=== PATIENT | female | born 1995 | race Two or more races ===

== ENCOUNTER 2017-05-06 22:19 | Emergency (ER) | payer SELFPAY ==
[~2017-05-06] VITALS: Ht 162.6 cm; Wt 6.0 kg
[2017-05-06] MEDS ORDERED: IBUPROFEN 800MG TABLET PO ONE (23:30)
[2017-05-07 00:27] VITALS: BP 115/69
== END 2017-05-06 23:48 | disposition home or self-care (01) ==
LOC: ER 22:19
DX: L03.115 Cellulitis of right lower limb (principal)
CPT/HCPCS: 99283

== ENCOUNTER 2018-03-04 07:17 | Observation (INO) | payer MEDICAID ==
[~2018-03-04] VITALS: Ht 165.1 cm; Wt 76.7 kg
[2018-03-04] MEDS ORDERED: PREN1TAB78 MT (07:43)
== END 2018-03-04 08:15 | disposition home or self-care (01) ==
LOC: L&D 07:17
PROVIDERS: ADMIT Obstetrics & Gynecology; ATTEND Obstetrics & Gynecology
DX: O36.8120 Decreased fetal movements, second trimester, not applicable or unspecified (principal); Z3A.21 21 weeks gestation of pregnancy
CPT/HCPCS: 99281; G0378

== ENCOUNTER 2018-05-15 18:37 | Observation (INO) | payer MEDICAID ==
[~2018-05-15] VITALS: Ht 165.1 cm; Wt 88.5 kg
[~2018-05-15 18:37] MED LIST: PREN1TAB78 MT
[2018-05-15 20:57] LABS: CLARITY URINE CLEAR (CLEAR); COLOR URINE YELLOW (YELLOW); KETONES URINE TRACE (NEGATIVE); LEUKOCYTE ESTERASE URINE NEGATIVE (NEGATIVE); NITRITE URINE NEGATIVE (NEGATIVE); OCCULT BLOOD URINE NEGATIVE (NEGATIVE); PROTEIN URINE NEGATIVE (NEGATIVE); SPECIFIC GRAVITY URINE 1.013 (1.005-1.030); UROBILINOGEN URINE 0.2 E.U./dL (0.2-1.0)
== END 2018-05-15 23:49 | disposition home or self-care (01) ==
LOC: ER 18:37 → 8EST NSY 18:54 → UNDOADMOB 18:54 → 8EST 18:54 → 8 EST LDRP 20:29 → 8EST NSY 20:29 → UNDODISOB 21:50
PROVIDERS: ADMIT Obstetrics & Gynecology; ATTEND Obstetrics & Gynecology
DX: O26.893 Other specified pregnancy related conditions, third trimester (principal); R10.2 Pelvic and perineal pain; R10.30 Lower abdominal pain, unspecified; Z3A.32 32 weeks gestation of pregnancy
CPT/HCPCS: 81003; 99281; G0378

== ENCOUNTER 2018-09-21 12:43 | Emergency (ER) | payer MEDICAID ==
[~2018-09-21] VITALS: Ht 162.6 cm; Wt 60.0 kg
[2018-09-21 13:39] LABS: CLARITY URINE CLOUDY (CLEAR); COLOR URINE YELLOW (YELLOW); KETONES URINE NEGATIVE (NEGATIVE); LEUKOCYTE ESTERASE URINE 3+ (NEGATIVE); NITRITE URINE NEGATIVE (NEGATIVE); OCCULT BLOOD URINE TRACE (NEGATIVE); PROTEIN URINE NEGATIVE (NEGATIVE); SPECIFIC GRAVITY URINE 1.019 (1.005-1.030); UROBILINOGEN URINE 0.2 E.U./dL (0.2-1.0)
[2018-09-21 14:15] LABS: *BARBITURATES SCREEN URINE NEGATIVE (NEGATIVE); *BENZODIAZEPINES SCREEN URINE NEGATIVE (NEGATIVE); *COCAINE SCREEN URINE NEGATIVE (NEGATIVE)
[2018-09-21] MEDS ORDERED: NITROFURANTOIN 100MG M/M CAPSULE PO ONE (14:15)
[2018-09-21 14:17] LABS: *AMPHETAMINES SCREEN URINE NEGATIVE (NEGATIVE); CANNABINOID URINE SCREEN NEGATIVE (NEGATIVE); METHADONE URINE SCREEN NEGATIVE (NEGATIVE); OPIATES URINE SCREEN NEGATIVE (NEGATIVE); PHENCYCLIDINE URINE SCREEN NEGATIVE (NEGATIVE)
[2018-09-21 14:30] LABS: BASOPHILS % 0.8 % (0.0-2.0); EOSINOPHILS % 3.5 % (0.0-5.0); HEMATOCRIT. 38.6 % (36.0-48.0); LYMPHOCYTES % 20.7 % (20.0-50.0); MEAN CORPUSCULAR HEMOGLOBIN 27.4 pg (28.0-32.0); MEAN PLATELET VOLUME 8.6 fl (7.4-10.4); MONOCYTES % 6.4 % (2.0-8.0); NEUTROPHILS % 68.6 % (40.0-76.0); PLATELET 262 x1000/uL (130-400); RED BLOOD CELL COUNT 4.76 mill/uL (4.2-5.4); RED CELL DISTRIBUTION WIDTH 15.5 % (11.6-14.6)
[2018-09-21 14:33] LABS: CHLORIDE 112 mEq/L (98-107)
[2018-09-21 14:38] LABS: HCG SCREEN NEGATIVE
[2018-09-21 14:41] LABS: ETHANOL BLOOD < 10 mg/dL
[2018-09-21 15:31] VITALS: BP 108/68
== END 2018-09-21 15:33 | disposition home or self-care (01) ==
LOC: ER 12:43
DX: N30.00 Acute cystitis without hematuria (principal); F20.9 Schizophrenia, unspecified; F17.200 Nicotine dependence, unspecified, uncomplicated; Z79.899 Other long term (current) drug therapy
CPT/HCPCS: 36415; 80305; 80307; 80320; 80329; 81025; 84703; 99283; G0480

== ENCOUNTER 2018-11-06 13:22 | Emergency (ER) | payer MEDICAID ==
[~2018-11-06] VITALS: Ht 165.1 cm; Wt 79.0 kg
[2018-11-06 13:54] VITALS: BP 121/70
== END 2018-11-06 18:53 | disposition left against medical advice (07) ==
LOC: ER 13:22
DX: Z53.21 Procedure and treatment not carried out due to patient leaving prior to being seen by health care provider (principal)